=== PATIENT | female | born 1970 | race Caucasian/White ===

== ENCOUNTER 2016-04-30 05:45 | Day surgery (SDC) | payer OTHER ==
[~2016-04-30] VITALS: Ht 170.2 cm; Wt 90.7 kg
[~2016-04-30 05:45] MED LIST: ACET500T33 PO; ALPR0.5T PO; ASCO10002 PO; ASPI325T4 PO; ATOR40TA59 PO; CHOL4000 PO; CLOP75TA PO; CYAN10005 PO; CYCL5TAB PO; IBUP-1027 PO; METF10002 PO; METO25TA4 PO; SERT100T PO; ZINC220C5 PO
[2016-04-30] MEDS ORDERED: CEFAZOLIN 2GM PREMIX 50 ML IV PRN (06:00)
[2016-04-30 06:21] LABS: NEG OBC UR NEG; POS OBC UR POS
--- NOTE | 2016-04-30 06:37 | EKG ---
[facility] [address] [place] [address] Test Date: 2016-04-30 Test Time: 06:43:43 Pat Name: GULSHAN DOMINGUEZ Department: Room: Gender: F Security Operations Analyst: GILBERTO : 1970 Requested By: YE TIMMONS Order Number: [id number] Reading MD: Measurements Intervals [place] Rate: 74 P: 63 [place]: 148 QRS: 23 QRSD: 88 T: 26 QT: 406 QTc: 451 Interpretive Statements SINUS RHYTHM LOW LIMB LEAD VOLTAGE NO SPECIFIC ECG ABNORMALITIES RI6.01 No previous ECG available for comparison
[2016-04-30] MEDS ORDERED: IV RINGERS,LACTATED 1000ML 1,000 ML IV SCH (07:00)
[2016-04-30] MEDS ORDERED: HYDROMORPHONE 2 MG/ML VIAL. IV PRN (07:00)
[2016-04-30] MEDS ORDERED: ONDANSETRON PF 4 MG/2 ML VIAL. IV PRN (07:00)
[2016-04-30] MEDS ORDERED: LIDOCAINE 1% 1 ML SYRINGE. ID PRN (07:00)
[2016-04-30] MEDS ORDERED: FENTANYL PF 100 MCG/2 ML VIAL. IV PRN ×2 (07:00)
[2016-04-30] MEDS ORDERED: MORPHINE SULFATE 2 MG/ML DISP.SYRIN. IV PRN (07:00)
[2016-04-30] MEDS ORDERED: PROCHLORPERAZINE 10 MG/2 ML VIAL. IV PRN (07:00)
[2016-04-30] MEDS ORDERED: EPINEPHRINE 30 MG/30 ML VIAL. ONE (07:06)
[2016-04-30] MEDS ORDERED: ROPIVacaine 0.5% PF 30 ML VIAL. ONE (07:13)
[2016-04-30] MEDS ORDERED: PROPOFOL 20 ML IV ONE (07:14)
[2016-04-30] MEDS ORDERED: LIDOCAINE 2% 100 MG/5 ML DISP.SYRIN. ONE (07:14)
[2016-04-30] MEDS ORDERED: FENTANYL PF 100 MCG/2 ML VIAL. ONE ×2 (07:14→08:45)
[2016-04-30] MEDS ORDERED: ONDANSETRON PF 4 MG/2 ML VIAL. ONE (07:14)
[2016-04-30] MEDS ORDERED: MIDAZOLAM HCL 2 MG/2 ML VIAL. ONE ×2 (07:14→07:20)
[2016-04-30] MEDS ORDERED: DEXAMETHASONE SOD PHOS 20 MG/5 ML VIAL. ONE (07:14)
[2016-04-30] MEDS ORDERED: ROCURONIUM 50 MG/5 ML VIAL. ONE (07:14)
--- NOTE | 2016-04-30 07:32 | DISCH ---
DISCHARGE INSTRUCTIONS Condition on Discharge Condition on Discharge: Stable Activity After Discharge Activity Instructions for Disc: Other, see below Other activity instructions: pendulum exercises, no lifting shoulder away from body Exercise Instruction after Dis: Exercise per therapy Diet after Discharge Diet after Discharge: Regular Wound Incision Care Wound/Incision Care: Change dressing Other wound/incision instructi: remove dressing 2 days may then shower, cold compression unit as desired Community/Resources/Services Services at Discharge: PT EVALUATE & TREAT Contacting the DR. after DC Call your doctor for: Concerns you may have Follow-Up Follow up with: Dong 05/06/16 at [facility] Treatment/Equipment after DC Comment: immobilizer on at night, may remove during day YE TIMMONS MD Apr 30, 2016 07:32
[2016-04-30] MEDS ORDERED: OXYC-244 PO (07:35)
[2016-04-30] MEDS ORDERED: DESFLURANE > 120 MINUTES IH ONE (08:02)
[2016-04-30] MEDS ORDERED: BUPIVACAINE 0.5% 50 ML VIAL. ONE (08:21)
[2016-04-30] MEDS ORDERED: MORPHINE SULFATE 10 MG/ML VIAL. ONE (08:22)
[2016-04-30] MEDS ORDERED: ESMOLOL 100 MG/10 ML VIAL. IV ONE (08:45)
[2016-04-30] MEDS ORDERED: KETOROLAC 30 MG/ML SYRINGE FOR OR. INJ ONE (08:47)
[2016-04-30] MEDS ORDERED: NEOSTIGMINE METHYLSULFATE 5 MG/5 ML SYRINGE. ONE (09:56)
[2016-04-30] MEDS ORDERED: GLYCOPYRROLATE 1 MG/5 ML VIAL. ONE (09:56)
[2016-04-30] MEDS ORDERED: OXYCODONE/APAP 7.5/325 TABLET. PO ONE ×2 (10:15)
[2016-04-30] MEDS ORDERED: INSULIN ASPART 100 UNIT/ML 10ML VIAL. SQ ONE ×2 (10:23→10:30)
[2016-04-30 12:35] VITALS: BP 127/73
--- NOTE | 2016-05-03 19:28 | OP ---
DATE OF SURGERY: 04/30/2016 PREOPERATIVE DIAGNOSIS: Rotator cuff tear. POSTOPERATIVE DIAGNOSIS: 1. Rotator cuff tear with full thickness supraspinatus tear, left shoulder. 2. Subacromial impingement. 3. Acromioclavicular joint degenerative change. 4. Adhesive capsulitis, left shoulder. PROCEDURE: Left shoulder manipulation under anesthesia, left shoulder arthroscopy, arthroscopic rotator cuff repair, subacromial decompression, distal clavicle excision. SURGEON: Dominic Umana M.D. ANESTHESIA: General endotracheal plus scalene block. ESTIMATED BLOOD LOSS: Less than 10 mL COMPLICATIONS: None. OPERATIVE INDICATIONS: The patient is a 46-year-old female that injured her left shoulder at work. MRI had shown a full thickness supraspinatus tear. 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 I had gone over with her the risks, benefits, postoperative course of the procedure, the possibility of nonhealing, continued pain, long rehabilitation under the best of circumstances, the possibility of medical or other anesthetic complications including infection, nonhealing, heart problems, nerve or blood vessel damage among others. All her questions were answered and consent was obtained and she agrees to proceed with operative evaluation and treatment. OPERATIVE TECHNIQUE: The patient was identified, procedure verified, patient placed in the supine position on the operating table. After adequate amounts of general endotracheal anesthesia plus a preexisting scalene block were obtained, she was placed decubitus, left side up. All bony prominences were well padded and the left shoulder was examined under anesthesia, found to have decreased range of motion in all planes and then after timeout was performed, the patient and procedure identified and verified, manipulation under anesthesia was carried out restoring her full range of motion without instability with a palpable and audible release of tissue. The left shoulder was then prepped and draped in the standard sterile fashion and timeout was again performed and following verification of patient and procedure, she was placed in 10 pounds of traction and a standard posterior portal was established and anterior portal established using spinal needle localization and the shoulder joint was systematically examined. The biceps anchor and superior labrum were noted to be well attached. Subscapularis tendon was in good condition. No bicipital fraying or subluxation was noted. Capsule ligamentous structures were noted to be normal in appearance and the glenohumeral joint was well preserved. The supraspinatus insertion was then examined and noted to be suspicious for a full thickness tear as suspected. This was confirmed with placement of a spinal needle probing, indeed it did show a full thickness tear at the insertion. The subacromial space was then entered with a lateral portal established. Bursa was cleared to allow good visualization. She was noted to have somewhat of a complex rotator cuff tear that was more involved anteriorly. A traction suture was placed just posterior and excellent tissue with the arthroscopic passing device to assess mobility after the cuff was mobilized and verified to hold the suture and therefore be amenable to a good repair. Anterior acromial spur was taken down as the coracoacromial ligament was quite irritated and the acromion was converted to a type 1 with arthroscopic bur using a cutting block technique. Distal clavicle was noted to be narrowed and arthritic along with the pain preoperatively elected to undergo a distal clavicle excision whereby the lateral 1 cm of the distal clavicle was excised with arthroscopic bur preserving the joints capsules for stability. This was measured to ensure adequate resection with the arthroscopic probe. Shaver was used to remove any bony fragments and used to debride the rotator cuff footprint back to bleeding tissue, but not decorticating. A total of two HEALICOIL Mccormack and Nephew 4.75 anchors were placed along the medial row of the footprint and sutures were placed in a mattress fashion using arthroscopic suture passer. Sutures were tied using a sliding locking knot backed up by alternating post-half hitches. Excellent apposition was noted of the medial row. Lateral row repair was completed with sutures in a crossing fashion with 2 Multifix S anchors by Mccormack and Nephew. Excellent fixation was noted and a ____ type repair verified under all degrees of internal and external rotation. Again full range of motion was noted with no instability. Given some doubt about the efficacy of the scalene block, a total of 20 mL of 0.5% plain Marcaine were injected. Portals closed with nylon suture. Sterile dressings were applied. The patient was placed in immobilizer, extubated and transferred to postop holding in stable condition having tolerated the procedure well. DOMINIC UMANA MD DR: YAMILET/cresencio JOB#: [id number] / [id number]
== END 2016-04-30 12:48 | disposition home or self-care (01) ==
LOC: SURG 05:45
PROVIDERS: ATTEND Orthopaedic Surgery
DX: S46.012A Strain of muscle(s) and tendon(s) of the rotator cuff of left shoulder, initial encounter (principal); M75.02 Adhesive capsulitis of left shoulder; M75.42 Impingement syndrome of left shoulder; M19.012 Primary osteoarthritis, left shoulder; X58.XXXA Exposure to other specified factors, initial encounter; Y93.9 Activity, unspecified; Y92.9 Unspecified place or not applicable; Y99.9 Unspecified external cause status
CPT/HCPCS: 29824; 29826; 29827; 81025; 82947; 93005; J0171; J0690; J1100; J1815; J1885; J2250; J2270; J2405; J2704; J2710; J2795; J3010; J3490; C1713; J7120